=== PATIENT | female | born 1995 | race Two or more races ===

== ENCOUNTER → 2020-04-25 | Outpatient (CLI) | payer SELFPAY | LOC: M LABSMTC 13:41 | PROVIDERS: ATTEND Pediatrics | DX: Z20.828 Contact with and (suspected) exposure to other viral communicable diseases (principal) ==

== ENCOUNTER → 2020-05-10 | Outpatient (CLI) | payer SELFPAY | LOC: M LABSMTC 10:57 | PROVIDERS: ATTEND Pediatrics | DX: Z20.828 Contact with and (suspected) exposure to other viral communicable diseases (principal) ==

== ENCOUNTER → 2020-05-24 | Outpatient (CLI) | payer SELFPAY | LOC: M LABSMTC 11:42 | PROVIDERS: ATTEND Pediatrics | DX: Z20.822 Contact with and (suspected) exposure to COVID-19 (principal) ==

== ENCOUNTER → 2020-06-08 | Outpatient (CLI) | payer SELFPAY | LOC: M LABSMTC 12:49 | PROVIDERS: ATTEND Pediatrics | DX: Z20.822 Contact with and (suspected) exposure to COVID-19 (principal) ==

== ENCOUNTER → 2020-06-27 | Outpatient (CLI) | payer SELFPAY | LOC: M LABSMTC 12:17 | PROVIDERS: ATTEND Pediatrics | DX: Z20.822 Contact with and (suspected) exposure to COVID-19 (principal) ==

== ENCOUNTER → 2020-07-13 | Outpatient (CLI) | payer SELFPAY | LOC: M LABSMTC 14:18 | PROVIDERS: ATTEND Pediatrics | DX: Z11.52 Encounter for screening for COVID-19 (principal) ==

== ENCOUNTER → 2020-08-07 | Outpatient (CLI) | payer SELFPAY | LOC: M LABSMTC 10:36 | PROVIDERS: ATTEND Pediatrics | DX: Z20.828 Contact with and (suspected) exposure to other viral communicable diseases (principal); Z11.59 Encounter for screening for other viral diseases ==